=== PATIENT | male | born 1945 | race Hispanic/Latino ===

== ENCOUNTER 2017-02-16 10:32 | Emergency (ER) | payer MEDICARE ==
[2017-02-16] MEDS ORDERED: Ondansetron HCl/PF 4 MG/2 ML Vial ONE (11:16)
[2017-02-16 11:25] LABS: #Basophils 0.1 thou/uL (0.0-0.2); #Eosinphils 0.1 thou/uL (0.0-0.7); #Lymphocytes 1.2 thou/uL (1.20-3.40); #Monocytes 0.5 thou/uL (0.11-0.59); #Neutrophils 6.7 thou/uL (1.40-6.50); %Basophils 1.2 % (0.0-1.0); %Monocytes 5.2 % (0.0-10.0); %Neutrophils 78.6 % (42.0-75.0); Hemoglobin 14.2 g/dL (14.0-18.0); Mean Corpuscular HGB CONC 34.2 g/dL (32.0-36.0); Mean Corpuscular Hemoglobin 29.5 pg (27.0-31.0); Mean Corpuscular Volume 86.3 fl (80.0-94.0); Mean Platelet Volume 6.8 fL (7.4-10.4); Platelet Count 224 thou/uL (130-400); RBC Distribution Width 12.2 % (11.5-14.5); White Blood Cell (WBC) Count 8.5 thou/uL (4.8-10.8)
[2017-02-16 11:43] LABS: ALT (SGPT) 23 U/L (8-55); AST (SGOT) 20 U/L (5-34); Albumin 4.3 g/dL (3.4-4.8); Alkaline Phosphatase 90 U/L (40-150); Anion Gap 18 mmol/L (10-20); BUN (Urea Nitrogen) 18 mg/dL (8.4-25.7); Bilirubin, Total 0.6 mg/dL (0.2-1.2); Calc. Creatinine Clearance 0 mL/min (70-130); Calcium 9.6 mg/dL (7.8-10.44); Carbon Dioxide 21 mmol/L (23-31); Chloride 99 mmol/L (98-107); Estimated GFR-MDRD 51; Globulin 3.6 g/dL (2.4-3.5); Glucose 147 mg/dL (83-110); Lipase 27 U/L (8-78); Potassium 5.1 mmol/L (3.5-5.1); Protein, Total 7.9 g/dL (5.8-8.1); Sodium 133 mmol/L (136-145)
[2017-02-16 11:44] LABS: CKMB 2.8 ng/mL (0-6.6); Troponin I 0.011 ng/mL (< 0.028)
--- NOTE | 2017-02-16 12:27 | CT ---
CT BRAIN WITHOUT CONTRAST: COMPARISON: 11/12/13. HISTORY: Dizziness and neck pain. TECHNIQUE: Multiple contiguous axial images were obtained in a CT of the brain without contrast. FINDINGS: There are a few subtle scattered foci of low density in the subcortical and periventricular white ma tter, likely secondary to small-vessel ischemic disease. No large confluent infarction is seen. Th ere is no evidence of hydrocephalus, intracranial hemorrhage, or extraaxial fluid collection. The calvarium and overlying soft tissues are unremarkable. The visualized paranasal sinuses and mas toid air cells are well aerated. IMPRESSION: No evidence of acute intracranial abnormality. POS: [facility]
== END 2017-02-16 12:10 | disposition home or self-care (01) ==
LOC: BURERS 10:32
DX: R11.2 Nausea with vomiting, unspecified (principal); R42 Dizziness and giddiness; I10 Essential (primary) hypertension; E11.9 Type 2 diabetes mellitus without complications; Z86.73 Personal history of transient ischemic attack (TIA), and cerebral infarction without residual deficits
CPT/HCPCS: 36416; 70450; 80053; 82553; 83690; 84484; 85025; 85379; 93005; 96374; J2405

== ENCOUNTER 2022-08-22 15:36 | Emergency (ER) | payer MEDICARE ==
[2022-08-22] MEDS ORDERED: Bacitracin 1 PK ONE (15:56)
== END 2022-08-22 16:18 | disposition home or self-care (01) ==
LOC: BURERS 15:36
DX: S90.822A Blister (nonthermal), left foot, initial encounter (principal); E11.9 Type 2 diabetes mellitus without complications; I10 Essential (primary) hypertension; X58.XXXA Exposure to other specified factors, initial encounter
CPT/HCPCS: 99283

== ENCOUNTER 2022-12-10 10:50 | Inpatient (IN) | payer OTHER ==
[2022-12-10] MEDS: Pregabalin 75 MG CAP PO SCH (20:53)
[2022-12-10] MEDS: Apixaban 5 MG TAB PO SCH (20:54)
[2022-12-10] MEDS: Atorvastatin Calcium 40 MG TAB PO SCH (20:54)
[2022-12-10] MEDS: Carvedilol 6.25 MG TAB PO SCH (20:54)
[2022-12-11 06:08] LABS: Anion Gap 13 mmol/L (10-20); BUN (Urea Nitrogen) 31 mg/dL (8.4-25.7); Calc. Creatinine Clearance 52 mL/min (70-130); Calcium 8.8 mg/dL (7.8-10.44); Carbon Dioxide 17 mmol/L (23-31); Chloride 114 mmol/L (98-107); Estimated GFR 44; Glucose 113 mg/dL (83-110); Potassium 3.7 mmol/L (3.5-5.1); Sodium 140 mmol/L (136-145)
[2022-12-11] MEDS ORDERED: Amlodipine 5 MG TAB PO SCH (09:00)
[2022-12-11] MEDS: Pregabalin 75 MG CAP PO SCH ×2 (09:58→20:38)
[2022-12-11] MEDS: Apixaban 5 MG TAB PO SCH ×2 (09:58→20:39)
[2022-12-11] MEDS: Aspirin 81 mg Enteric Coated Tablet PO SCH (09:59)
[2022-12-11] MEDS: Lisinopril 5 MG TAB PO SCH (09:59)
[2022-12-11] MEDS: Carvedilol 6.25 MG TAB PO SCH ×2 (10:00→20:39)
[2022-12-11] MEDS: Amiodarone 200 MG TAB PO SCH (10:00)
[2022-12-11] MEDS: Furosemide 40 MG TAB PO SCH (10:02)
[2022-12-11] MEDS: Empagliflozin 10 MG TAB PO SCH (10:02)
[2022-12-11] MEDS: Lantus 1000 UNITS/10 ML VIAL SC SCH (10:02)
[2022-12-11] MEDS: Atorvastatin Calcium 40 MG TAB PO SCH (20:39)
[2022-12-12 06:05] LABS: Anion Gap 12 mmol/L (10-20); BUN (Urea Nitrogen) 37 mg/dL (8.4-25.7); Calc. Creatinine Clearance 45 mL/min (70-130); Calcium 8.7 mg/dL (7.8-10.44); Carbon Dioxide 18 mmol/L (23-31); Chloride 115 mmol/L (98-107); Estimated GFR 37; Glucose 112 mg/dL (83-110); Potassium 3.7 mmol/L (3.5-5.1); Sodium 141 mmol/L (136-145)
[2022-12-12] MEDS: Aspirin 81 mg Enteric Coated Tablet PO SCH (08:37)
[2022-12-12] MEDS: Pregabalin 75 MG CAP PO SCH ×2 (08:38→20:30)
[2022-12-12] MEDS: Amiodarone 200 MG TAB PO SCH (08:38)
[2022-12-12] MEDS: Carvedilol 6.25 MG TAB PO SCH ×2 (08:39→20:30)
[2022-12-12] MEDS: Apixaban 5 MG TAB PO SCH ×2 (08:40→20:30)
[2022-12-12] MEDS: Lisinopril 5 MG TAB PO SCH (08:40)
[2022-12-12] MEDS: Empagliflozin 10 MG TAB PO SCH (08:40)
[2022-12-12] MEDS: Furosemide 40 MG TAB PO SCH (08:41)
[2022-12-12] MEDS: Lantus 1000 UNITS/10 ML VIAL SC SCH (08:42)
[2022-12-12] MEDS: Atorvastatin Calcium 40 MG TAB PO SCH (20:30)
[2022-12-13 05:16] LABS: Anion Gap 13 mmol/L (10-20); BUN (Urea Nitrogen) 43 mg/dL (8.4-25.7); Calc. Creatinine Clearance 41 mL/min (70-130); Calcium 8.8 mg/dL (7.8-10.44); Carbon Dioxide 18 mmol/L (23-31); Chloride 114 mmol/L (98-107); Estimated GFR 34; Glucose 102 mg/dL (83-110); Potassium 3.8 mmol/L (3.5-5.1); Sodium 141 mmol/L (136-145)
[2022-12-13] MEDS: Amiodarone 200 MG TAB PO SCH (09:26)
[2022-12-13] MEDS: Apixaban 5 MG TAB PO SCH ×2 (09:26→20:39)
[2022-12-13] MEDS: Pregabalin 75 MG CAP PO SCH ×2 (09:26→20:37)
[2022-12-13] MEDS: Furosemide 40 MG TAB PO SCH (09:27)
[2022-12-13] MEDS: Empagliflozin 10 MG TAB PO SCH (09:27)
[2022-12-13] MEDS: Aspirin 81 mg Enteric Coated Tablet PO SCH (09:27)
[2022-12-13] MEDS: Carvedilol 6.25 MG TAB PO SCH ×2 (09:27→20:39)
[2022-12-13] MEDS: Lisinopril 5 MG TAB PO SCH (09:27)
[2022-12-13] MEDS: Lantus 1000 UNITS/10 ML VIAL SC SCH (09:28)
[2022-12-13] MEDS ORDERED: Dextrose 50% Abboject 50 ML SYRINGE IVP PRN (18:45)
[2022-12-13] MEDS ORDERED: Dextrose 5% in Water 1,000 ML IV PRN (18:45)
[2022-12-13] MEDS: Atorvastatin Calcium 40 MG TAB PO SCH (20:39)
[2022-12-14] MEDS: Pregabalin 75 MG CAP PO SCH ×2 (09:38→20:35)
[2022-12-14] MEDS: Aspirin 81 mg Enteric Coated Tablet PO SCH (09:39)
[2022-12-14] MEDS: Empagliflozin 10 MG TAB PO SCH (09:39)
[2022-12-14] MEDS: Amiodarone 200 MG TAB PO SCH (09:39)
[2022-12-14] MEDS: Apixaban 5 MG TAB PO SCH ×2 (09:39→20:36)
[2022-12-14] MEDS: Carvedilol 6.25 MG TAB PO SCH ×2 (09:44→20:35)
[2022-12-14] MEDS: Lantus 1000 UNITS/10 ML VIAL SC SCH (09:45)
[2022-12-14] MEDS: Lisinopril 5 MG TAB PO SCH (09:46)
[2022-12-14] MEDS: Furosemide 40 MG TAB PO SCH (09:47)
[2022-12-14] MEDS: HumaLOG 300 UNITS/3 ML VIAL SC PRN (17:41)
[2022-12-14] MEDS: Atorvastatin Calcium 40 MG TAB PO SCH (20:36)
[2022-12-15] MEDS: Aspirin 81 mg Enteric Coated Tablet PO SCH (09:23)
[2022-12-15] MEDS: Apixaban 5 MG TAB PO SCH ×2 (09:24→20:32)
[2022-12-15] MEDS: Amiodarone 200 MG TAB PO SCH (09:24)
[2022-12-15] MEDS: Empagliflozin 10 MG TAB PO SCH (09:24)
[2022-12-15] MEDS: Carvedilol 6.25 MG TAB PO SCH ×2 (09:25→20:33)
[2022-12-15] MEDS: Furosemide 40 MG TAB PO SCH (09:25)
[2022-12-15] MEDS: Lisinopril 5 MG TAB PO SCH (09:25)
[2022-12-15] MEDS: Pregabalin 75 MG CAP PO SCH ×2 (09:26→20:32)
[2022-12-15] MEDS: Lantus 1000 UNITS/10 ML VIAL SC SCH (09:27)
[2022-12-15] MEDS: Atorvastatin Calcium 40 MG TAB PO SCH (20:32)
[2022-12-16] MEDS: Lisinopril 5 MG TAB PO SCH (08:36)
[2022-12-16] MEDS: Furosemide 40 MG TAB PO SCH (08:37)
[2022-12-16] MEDS: Carvedilol 6.25 MG TAB PO SCH ×2 (08:37→21:50)
[2022-12-16] MEDS: Aspirin 81 mg Enteric Coated Tablet PO SCH (08:37)
[2022-12-16] MEDS: Pregabalin 75 MG CAP PO SCH ×2 (08:37→21:49)
[2022-12-16] MEDS: Apixaban 5 MG TAB PO SCH ×2 (08:38→21:49)
[2022-12-16] MEDS: Lantus 1000 UNITS/10 ML VIAL SC SCH (08:38)
[2022-12-16] MEDS: Amiodarone 200 MG TAB PO SCH (08:38)
[2022-12-16] MEDS: Empagliflozin 10 MG TAB PO SCH (08:38)
[2022-12-16] MEDS: Atorvastatin Calcium 40 MG TAB PO SCH (21:49)
[2022-12-17] MEDS: Pregabalin 75 MG CAP PO SCH ×2 (09:00→22:01)
[2022-12-17] MEDS: Empagliflozin 10 MG TAB PO SCH (09:01)
[2022-12-17] MEDS: Apixaban 5 MG TAB PO SCH ×2 (09:01→21:59)
[2022-12-17] MEDS: Aspirin 81 mg Enteric Coated Tablet PO SCH (09:01)
[2022-12-17] MEDS: Furosemide 40 MG TAB PO SCH (09:01)
[2022-12-17] MEDS: Lisinopril 5 MG TAB PO SCH (09:05)
[2022-12-17] MEDS: Carvedilol 6.25 MG TAB PO SCH ×2 (09:06→21:59)
[2022-12-17] MEDS: Lantus 1000 UNITS/10 ML VIAL SC SCH (09:06)
[2022-12-17] MEDS: Amiodarone 200 MG TAB PO SCH (09:07)
[2022-12-17] MEDS: Atorvastatin Calcium 40 MG TAB PO SCH (21:59)
[2022-12-18] MEDS ORDERED: Ipratropium/Albuterol 3 ML NEB ONE (02:52)
[2022-12-18] MEDS: Pregabalin 75 MG CAP PO SCH ×2 (08:36→21:32)
[2022-12-18] MEDS: Amiodarone 200 MG TAB PO SCH (08:37)
[2022-12-18] MEDS: Apixaban 5 MG TAB PO SCH ×2 (08:37→21:31)
[2022-12-18] MEDS: Aspirin 81 mg Enteric Coated Tablet PO SCH (08:38)
[2022-12-18] MEDS: Empagliflozin 10 MG TAB PO SCH (08:38)
[2022-12-18] MEDS: Furosemide 40 MG TAB PO SCH (08:38)
[2022-12-18] MEDS: Carvedilol 6.25 MG TAB PO SCH ×2 (08:40→21:31)
[2022-12-18] MEDS: Lisinopril 5 MG TAB PO SCH (08:40)
[2022-12-18] MEDS: Lantus 1000 UNITS/10 ML VIAL SC SCH (08:40)
[2022-12-18] MEDS: Atorvastatin Calcium 40 MG TAB PO SCH (21:31)
[2022-12-19] MEDS: Amiodarone 200 MG TAB PO SCH (08:31)
[2022-12-19] MEDS: Pregabalin 75 MG CAP PO SCH ×2 (08:32→20:37)
[2022-12-19] MEDS: Apixaban 5 MG TAB PO SCH ×2 (08:35→20:36)
[2022-12-19] MEDS: Furosemide 40 MG TAB PO SCH (08:39)
[2022-12-19] MEDS: Lisinopril 5 MG TAB PO SCH (08:39)
[2022-12-19] MEDS: Carvedilol 6.25 MG TAB PO SCH ×2 (08:40→20:36)
[2022-12-19] MEDS: Aspirin 81 mg Enteric Coated Tablet PO SCH (08:40)
[2022-12-19] MEDS: Empagliflozin 10 MG TAB PO SCH (08:42)
[2022-12-19] MEDS: Lantus 1000 UNITS/10 ML VIAL SC SCH (08:42)
[2022-12-19] MEDS: HumaLOG 300 UNITS/3 ML VIAL SC PRN (17:53)
[2022-12-19] MEDS: Atorvastatin Calcium 40 MG TAB PO SCH (20:36)
[2022-12-20] MEDS: Lisinopril 5 MG TAB PO SCH (10:00)
[2022-12-20] MEDS: Pregabalin 75 MG CAP PO SCH ×2 (10:03→20:54)
[2022-12-20] MEDS: Amiodarone 200 MG TAB PO SCH (10:04)
[2022-12-20] MEDS: Empagliflozin 10 MG TAB PO SCH (10:04)
[2022-12-20] MEDS: Apixaban 5 MG TAB PO SCH ×2 (10:05→20:54)
[2022-12-20] MEDS: Carvedilol 6.25 MG TAB PO SCH ×2 (10:05→20:54)
[2022-12-20] MEDS: Aspirin 81 mg Enteric Coated Tablet PO SCH (10:05)
[2022-12-20] MEDS: Lantus 1000 UNITS/10 ML VIAL SC SCH (10:06)
[2022-12-20] MEDS: Furosemide 40 MG TAB PO SCH (10:07)
[2022-12-20] MEDS: HumaLOG 300 UNITS/3 ML VIAL SC PRN (17:12)
[2022-12-20] MEDS: Atorvastatin Calcium 40 MG TAB PO SCH (20:54)
[2022-12-21] MEDS: Amiodarone 200 MG TAB PO SCH (09:27)
[2022-12-21] MEDS: Empagliflozin 10 MG TAB PO SCH (09:28)
[2022-12-21] MEDS: Aspirin 81 mg Enteric Coated Tablet PO SCH (09:28)
[2022-12-21] MEDS: Apixaban 5 MG TAB PO SCH ×2 (09:28→21:58)
[2022-12-21] MEDS: Lisinopril 5 MG TAB PO SCH (09:29)
[2022-12-21] MEDS: Lantus 1000 UNITS/10 ML VIAL SC SCH (09:30)
[2022-12-21] MEDS: Furosemide 40 MG TAB PO SCH (09:30)
[2022-12-21] MEDS: Pregabalin 75 MG CAP PO SCH ×2 (09:34→21:58)
[2022-12-21] MEDS: Carvedilol 6.25 MG TAB PO SCH ×2 (09:35→22:06)
[2022-12-21] MEDS: Atorvastatin Calcium 40 MG TAB PO SCH (21:58)
[2022-12-22] MEDS: Amiodarone 200 MG TAB PO SCH (08:57)
[2022-12-22] MEDS: Apixaban 5 MG TAB PO SCH ×2 (08:58→21:07)
[2022-12-22] MEDS: Aspirin 81 mg Enteric Coated Tablet PO SCH (08:58)
[2022-12-22] MEDS: Pregabalin 75 MG CAP PO SCH ×2 (08:58→21:00)
[2022-12-22] MEDS: Empagliflozin 10 MG TAB PO SCH (08:59)
[2022-12-22] MEDS: Lantus 1000 UNITS/10 ML VIAL SC SCH (08:59)
[2022-12-22] MEDS: Carvedilol 6.25 MG TAB PO SCH ×2 (09:09→21:07)
[2022-12-22] MEDS: Lisinopril 5 MG TAB PO SCH (09:10)
[2022-12-22] MEDS: Furosemide 40 MG TAB PO SCH (09:11)
[2022-12-22] MEDS: HumaLOG 300 UNITS/3 ML VIAL SC PRN (13:25)
[2022-12-22] MEDS: Atorvastatin Calcium 40 MG TAB PO SCH (21:08)
[2022-12-23] MEDS: Amiodarone 200 MG TAB PO SCH (09:26)
[2022-12-23] MEDS: Pregabalin 75 MG CAP PO SCH ×2 (09:31→21:17)
[2022-12-23] MEDS: Lisinopril 5 MG TAB PO SCH (09:33)
[2022-12-23] MEDS: Furosemide 40 MG TAB PO SCH (09:33)
[2022-12-23] MEDS: Aspirin 81 mg Enteric Coated Tablet PO SCH (09:33)
[2022-12-23] MEDS: Carvedilol 6.25 MG TAB PO SCH ×2 (09:33→21:18)
[2022-12-23] MEDS: Empagliflozin 10 MG TAB PO SCH (09:34)
[2022-12-23] MEDS: Lantus 1000 UNITS/10 ML VIAL SC SCH (09:34)
[2022-12-23] MEDS: Apixaban 5 MG TAB PO SCH ×2 (09:34→21:19)
[2022-12-23] MEDS: Atorvastatin Calcium 40 MG TAB PO SCH (21:18)
[2022-12-24] MEDS: Lantus 1000 UNITS/10 ML VIAL SC SCH (10:12)
[2022-12-24] MEDS: Pregabalin 75 MG CAP PO SCH ×2 (10:12→21:40)
[2022-12-24] MEDS: Furosemide 40 MG TAB PO SCH ×2 (10:13→10:22)
[2022-12-24] MEDS: Apixaban 5 MG TAB PO SCH ×2 (10:13→21:41)
[2022-12-24] MEDS: Amiodarone 200 MG TAB PO SCH (10:13)
[2022-12-24] MEDS: Lisinopril 5 MG TAB PO SCH ×2 (10:13→10:24)
[2022-12-24] MEDS: Aspirin 81 mg Enteric Coated Tablet PO SCH (10:14)
[2022-12-24] MEDS: Carvedilol 6.25 MG TAB PO SCH ×4 (10:14→21:44)
[2022-12-24] MEDS: Empagliflozin 10 MG TAB PO SCH (10:14)
[2022-12-24] MEDS: traMADol HCl 50 MG TAB PO PRN (15:09)
[2022-12-24] MEDS: Atorvastatin Calcium 40 MG TAB PO SCH (21:41)
[2022-12-25] MEDS: Pregabalin 75 MG CAP PO SCH ×2 (10:39→21:55)
[2022-12-25] MEDS: Apixaban 5 MG TAB PO SCH ×2 (10:40→21:55)
[2022-12-25] MEDS: Amiodarone 200 MG TAB PO SCH (10:40)
[2022-12-25] MEDS: Carvedilol 6.25 MG TAB PO SCH ×2 (10:40→21:57)
[2022-12-25] MEDS: Empagliflozin 10 MG TAB PO SCH (10:40)
[2022-12-25] MEDS: Aspirin 81 mg Enteric Coated Tablet PO SCH (10:40)
[2022-12-25] MEDS: Furosemide 40 MG TAB PO SCH (10:43)
[2022-12-25] MEDS: Lisinopril 5 MG TAB PO SCH (10:43)
[2022-12-25] MEDS: Lantus 1000 UNITS/10 ML VIAL SC SCH (10:44)
[2022-12-25] MEDS: Atorvastatin Calcium 40 MG TAB PO SCH (21:55)
[2022-12-26] MEDS: Apixaban 5 MG TAB PO SCH ×2 (10:45→20:55)
[2022-12-26] MEDS: Amiodarone 200 MG TAB PO SCH (10:48)
[2022-12-26] MEDS: Carvedilol 6.25 MG TAB PO SCH ×2 (10:49→21:24)
[2022-12-26] MEDS: Aspirin 81 mg Enteric Coated Tablet PO SCH (10:49)
[2022-12-26] MEDS: Lisinopril 5 MG TAB PO SCH (10:49)
[2022-12-26] MEDS: Furosemide 40 MG TAB PO SCH (10:49)
[2022-12-26] MEDS: Empagliflozin 10 MG TAB PO SCH (10:49)
[2022-12-26] MEDS: Lantus 1000 UNITS/10 ML VIAL SC SCH (10:50)
[2022-12-26] MEDS: Pregabalin 75 MG CAP PO SCH ×2 (10:56→20:55)
[2022-12-26] MEDS: Atorvastatin Calcium 40 MG TAB PO SCH (20:56)
[2022-12-27] MEDS ORDERED: Furosemide 40 MG TAB PO SCH (07:38)
[2022-12-27] MEDS: Amiodarone 200 MG TAB PO SCH (09:48)
[2022-12-27] MEDS: Apixaban 5 MG TAB PO SCH ×2 (09:48→19:57)
[2022-12-27] MEDS: Carvedilol 6.25 MG TAB PO SCH ×2 (09:48→19:57)
[2022-12-27] MEDS: Empagliflozin 10 MG TAB PO SCH (09:48)
[2022-12-27] MEDS: Lisinopril 5 MG TAB PO SCH (09:49)
[2022-12-27] MEDS: Aspirin 81 mg Enteric Coated Tablet PO SCH (09:49)
[2022-12-27] MEDS: Furosemide 20 MG TAB PO SCH (09:49)
[2022-12-27] MEDS: Lantus 1000 UNITS/10 ML VIAL SC SCH (09:49)
[2022-12-27] MEDS: Pregabalin 75 MG CAP PO SCH ×2 (09:56→19:56)
[2022-12-27] MEDS: Atorvastatin Calcium 40 MG TAB PO SCH (19:57)
[2022-12-28 05:35] LABS: Hemoglobin 9.9 g/dL (14.0-18.0); Platelet Count 126 10x3/uL (130-400)
[2022-12-28] MEDS: Pregabalin 75 MG CAP PO SCH ×2 (09:12→21:04)
[2022-12-28] MEDS: Apixaban 5 MG TAB PO SCH ×2 (09:12→21:05)
[2022-12-28] MEDS: Empagliflozin 10 MG TAB PO SCH (09:14)
[2022-12-28] MEDS: Aspirin 81 mg Enteric Coated Tablet PO SCH (09:14)
[2022-12-28] MEDS: traMADol HCl 50 MG TAB PO PRN (09:14)
[2022-12-28] MEDS: Amiodarone 200 MG TAB PO SCH (09:14)
[2022-12-28] MEDS: Lantus 1000 UNITS/10 ML VIAL SC SCH (09:15)
[2022-12-28] MEDS: Lisinopril 5 MG TAB PO SCH (09:50)
[2022-12-28] MEDS: Carvedilol 6.25 MG TAB PO SCH ×2 (09:50→21:08)
[2022-12-28] MEDS: Furosemide 20 MG TAB PO SCH (09:50)
[2022-12-28] MEDS: HumaLOG 300 UNITS/3 ML VIAL SC PRN (17:22)
[2022-12-28] MEDS: Atorvastatin Calcium 40 MG TAB PO SCH (21:05)
[2022-12-29] MEDS: Lisinopril 5 MG TAB PO SCH (08:39)
[2022-12-29] MEDS: Aspirin 81 mg Enteric Coated Tablet PO SCH (08:40)
[2022-12-29] MEDS: Apixaban 5 MG TAB PO SCH ×2 (08:40→20:55)
[2022-12-29] MEDS: Pregabalin 75 MG CAP PO SCH ×2 (08:40→20:55)
[2022-12-29] MEDS: Carvedilol 6.25 MG TAB PO SCH ×2 (08:41→20:55)
[2022-12-29] MEDS: Amiodarone 200 MG TAB PO SCH (08:42)
[2022-12-29] MEDS: Empagliflozin 10 MG TAB PO SCH (08:42)
[2022-12-29] MEDS: Furosemide 20 MG TAB PO SCH (08:43)
[2022-12-29] MEDS: Lantus 1000 UNITS/10 ML VIAL SC SCH (08:43)
[2022-12-29] MEDS: Atorvastatin Calcium 40 MG TAB PO SCH (20:55)
[2022-12-30] MEDS: Pregabalin 75 MG CAP PO SCH ×2 (09:15→21:10)
[2022-12-30] MEDS: Amiodarone 200 MG TAB PO SCH (09:15)
[2022-12-30] MEDS: Lisinopril 5 MG TAB PO SCH (09:16)
[2022-12-30] MEDS: Carvedilol 6.25 MG TAB PO SCH ×2 (09:22→21:09)
[2022-12-30] MEDS: Empagliflozin 10 MG TAB PO SCH (09:22)
[2022-12-30] MEDS: Furosemide 20 MG TAB PO SCH (09:22)
[2022-12-30] MEDS: Apixaban 5 MG TAB PO SCH ×2 (09:22→21:09)
[2022-12-30] MEDS: Aspirin 81 mg Enteric Coated Tablet PO SCH (09:22)
[2022-12-30] MEDS: Lantus 1000 UNITS/10 ML VIAL SC SCH (09:23)
[2022-12-30] MEDS: Atorvastatin Calcium 40 MG TAB PO SCH (21:09)
[2022-12-31] MEDS: Empagliflozin 10 MG TAB PO SCH (09:43)
[2022-12-31] MEDS: Apixaban 5 MG TAB PO SCH ×2 (09:43→22:53)
[2022-12-31] MEDS: Aspirin 81 mg Enteric Coated Tablet PO SCH (09:43)
[2022-12-31] MEDS: Pregabalin 75 MG CAP PO SCH ×2 (09:43→22:53)
[2022-12-31] MEDS: Amiodarone 200 MG TAB PO SCH (09:43)
[2022-12-31] MEDS: Furosemide 20 MG TAB PO SCH (09:59)
[2022-12-31] MEDS: Carvedilol 6.25 MG TAB PO SCH ×2 (10:04→22:53)
[2022-12-31] MEDS: Lisinopril 5 MG TAB PO SCH (10:05)
[2022-12-31] MEDS: Lantus 1000 UNITS/10 ML VIAL SC SCH (10:06)
[2022-12-31] MEDS: HumaLOG 300 UNITS/3 ML VIAL SC PRN (18:02)
[2022-12-31] MEDS: Atorvastatin Calcium 40 MG TAB PO SCH (22:53)
[2023-01-01] MEDS: Amiodarone 200 MG TAB PO SCH (08:21)
[2023-01-01] MEDS: Pregabalin 75 MG CAP PO SCH ×2 (08:21→21:54)
[2023-01-01] MEDS: Furosemide 20 MG TAB PO SCH (08:24)
[2023-01-01] MEDS: Carvedilol 6.25 MG TAB PO SCH ×2 (08:24→21:54)
[2023-01-01] MEDS: Apixaban 5 MG TAB PO SCH ×2 (08:24→21:54)
[2023-01-01] MEDS: Empagliflozin 10 MG TAB PO SCH (08:24)
[2023-01-01] MEDS: Aspirin 81 mg Enteric Coated Tablet PO SCH (08:24)
[2023-01-01] MEDS: Lantus 1000 UNITS/10 ML VIAL SC SCH (08:25)
[2023-01-01] MEDS: Lisinopril 5 MG TAB PO SCH (08:27)
[2023-01-01] MEDS: traMADol HCl 50 MG TAB PO PRN (11:57)
[2023-01-01] MEDS: HumaLOG 300 UNITS/3 ML VIAL SC PRN (12:58)
[2023-01-01] MEDS: Atorvastatin Calcium 40 MG TAB PO SCH (21:54)
[2023-01-02] MEDS: Pregabalin 75 MG CAP PO SCH ×2 (08:39→21:43)
[2023-01-02] MEDS: Amiodarone 200 MG TAB PO SCH (08:39)
[2023-01-02] MEDS: Apixaban 5 MG TAB PO SCH ×2 (08:40→21:42)
[2023-01-02] MEDS: Furosemide 20 MG TAB PO SCH (08:40)
[2023-01-02] MEDS: Empagliflozin 10 MG TAB PO SCH (08:40)
[2023-01-02] MEDS: Aspirin 81 mg Enteric Coated Tablet PO SCH (08:40)
[2023-01-02] MEDS: Lisinopril 5 MG TAB PO SCH (08:45)
[2023-01-02] MEDS: Lantus 1000 UNITS/10 ML VIAL SC SCH (08:45)
[2023-01-02] MEDS: Carvedilol 6.25 MG TAB PO SCH ×2 (08:46→21:42)
[2023-01-02] MEDS ORDERED: Ondansetron ODT 4 MG TAB PO PRN (12:10)
[2023-01-02] MEDS: HumaLOG 300 UNITS/3 ML VIAL SC PRN ×2 (12:57→17:22)
[2023-01-02] MEDS: Atorvastatin Calcium 40 MG TAB PO SCH (21:42)
[2023-01-03] MEDS: Furosemide 20 MG TAB PO SCH (10:32)
[2023-01-03] MEDS: Lantus 1000 UNITS/10 ML VIAL SC SCH (10:32)
[2023-01-03] MEDS: Aspirin 81 mg Enteric Coated Tablet PO SCH (10:32)
[2023-01-03] MEDS: Carvedilol 6.25 MG TAB PO SCH ×2 (10:33→21:55)
[2023-01-03] MEDS: Amiodarone 200 MG TAB PO SCH (10:33)
[2023-01-03] MEDS: Apixaban 5 MG TAB PO SCH ×2 (10:33→21:54)
[2023-01-03] MEDS: Lisinopril 5 MG TAB PO SCH (10:34)
[2023-01-03] MEDS: Empagliflozin 10 MG TAB PO SCH (10:34)
[2023-01-03] MEDS: Pregabalin 75 MG CAP PO SCH ×2 (11:00→21:54)
[2023-01-03] MEDS: Atorvastatin Calcium 40 MG TAB PO SCH (21:54)
[2023-01-04 05:20] LABS: Hemoglobin 10.3 g/dL (14.0-18.0); Platelet Count 118 10x3/uL (130-400)
[2023-01-04] MEDS: Pregabalin 75 MG CAP PO SCH ×2 (10:16→21:02)
[2023-01-04] MEDS: Empagliflozin 10 MG TAB PO SCH (10:21)
[2023-01-04] MEDS: Amiodarone 200 MG TAB PO SCH (10:21)
[2023-01-04] MEDS: Carvedilol 6.25 MG TAB PO SCH ×2 (10:21→21:02)
[2023-01-04] MEDS: Apixaban 5 MG TAB PO SCH ×2 (10:21→21:02)
[2023-01-04] MEDS: Lantus 1000 UNITS/10 ML VIAL SC SCH (10:21)
[2023-01-04] MEDS: Furosemide 20 MG TAB PO SCH (10:21)
[2023-01-04] MEDS: Lisinopril 5 MG TAB PO SCH (10:22)
[2023-01-04] MEDS: Aspirin 81 mg Enteric Coated Tablet PO SCH (10:22)
[2023-01-04] MEDS: HumaLOG 300 UNITS/3 ML VIAL SC PRN (17:17)
[2023-01-04] MEDS: Atorvastatin Calcium 40 MG TAB PO SCH (21:02)
[2023-01-05] MEDS: Amiodarone 200 MG TAB PO SCH (08:36)
[2023-01-05] MEDS: Pregabalin 75 MG CAP PO SCH ×2 (08:36→20:59)
[2023-01-05] MEDS: Apixaban 5 MG TAB PO SCH ×2 (08:36→21:01)
[2023-01-05] MEDS: Lisinopril 5 MG TAB PO SCH (08:37)
[2023-01-05] MEDS: Aspirin 81 mg Enteric Coated Tablet PO SCH (08:37)
[2023-01-05] MEDS: Furosemide 20 MG TAB PO SCH (08:38)
[2023-01-05] MEDS: Empagliflozin 10 MG TAB PO SCH (08:39)
[2023-01-05] MEDS: Carvedilol 6.25 MG TAB PO SCH ×2 (08:39→21:01)
[2023-01-05] MEDS: Lantus 1000 UNITS/10 ML VIAL SC SCH (08:40)
[2023-01-05 12:02] VITALS: BMI 29.4
[2023-01-05] MEDS: HumaLOG 300 UNITS/3 ML VIAL SC PRN ×2 (12:51→17:41)
[2023-01-05] MEDS: Atorvastatin Calcium 40 MG TAB PO SCH (21:00)
[2023-01-06 05:05] VITALS: TEMP 97.9
[2023-01-06] MEDS: Lantus 1000 UNITS/10 ML VIAL SC SCH (08:57)
[2023-01-06] MEDS: Amiodarone 200 MG TAB PO SCH (08:59)
[2023-01-06] MEDS: Pregabalin 75 MG CAP PO SCH (08:59)
[2023-01-06] MEDS: Empagliflozin 10 MG TAB PO SCH (08:59)
[2023-01-06] MEDS: Furosemide 20 MG TAB PO SCH (08:59)
[2023-01-06] MEDS: Apixaban 5 MG TAB PO SCH (08:59)
[2023-01-06] MEDS: Carvedilol 6.25 MG TAB PO SCH (09:00)
[2023-01-06] MEDS: Lisinopril 5 MG TAB PO SCH (09:00)
[2023-01-06] MEDS: Aspirin 81 mg Enteric Coated Tablet PO SCH (09:00)
[2023-01-06 09:06] VITALS: BP 117/69
== END 2023-01-06 15:00 | DRG 948 ==
LOC: BURMED 11:40
PROVIDERS: ADMIT Family Medicine; ATTEND Nurse Practitioner
DX: R53.1 Weakness (principal); L97.429 Non-pressure chronic ulcer of left heel and midfoot with unspecified severity; I50.22 Chronic systolic (congestive) heart failure; I13.0 Hypertensive heart and chronic kidney disease with heart failure and stage 1 through stage 4 chronic kidney disease, or unspecified chronic kidney disease; I48.91 Unspecified atrial fibrillation; E11.22 Type 2 diabetes mellitus with diabetic chronic kidney disease; N18.9 Chronic kidney disease, unspecified; E11.622 Type 2 diabetes mellitus with other skin ulcer; E78.5 Hyperlipidemia, unspecified; I25.10 Atherosclerotic heart disease of native coronary artery without angina pectoris; N40.0 Benign prostatic hyperplasia without lower urinary tract symptoms; E11.51 Type 2 diabetes mellitus with diabetic peripheral angiopathy without gangrene; Z86.73 Personal history of transient ischemic attack (TIA), and cerebral infarction without residual deficits; Z95.1 Presence of aortocoronary bypass graft; Z90.49 Acquired absence of other specified parts of digestive tract
CPT/HCPCS: 36415; 36416; 80048; 85014; 85018; 85049; 97602; J1815; J7620